=== PATIENT | female | born 1950 ===

== ENCOUNTER → 2017-07-01 | Emergency (ER) | payer OTHER ==
[~2017-07-01] VITALS: Ht 152.4 cm; Wt 64.9 kg
[~2017-07-01] MED LIST: COZAAR50 MG PO; HYDRODIURIL12.5 MG PO
== END | disposition home or self-care (01) ==
LOC: ER 08:43
DX: R42 Dizziness and giddiness (principal)

== ENCOUNTER 2019-12-05 08:06 | Outpatient (CLI) | payer OTHER | END 2019-12-05 08:10 | disposition home or self-care (01) | LOC: TOM 08:06 | PROVIDERS: ATTEND Internal Medicine | DX: R19.8 Other specified symptoms and signs involving the digestive system and abdomen (principal) ==

== ENCOUNTER 2021-09-02 12:06 | Outpatient (CLI) | payer OTHER | END 2021-09-02 12:13 | disposition home or self-care (01) | LOC: RAD 12:06 | PROVIDERS: ATTEND Physical Medicine & Rehabilitation | DX: M17.0 Bilateral primary osteoarthritis of knee (principal) ==

== ENCOUNTER 2021-09-05 07:49 | Outpatient (CLI) | payer OTHER | END 2021-09-05 08:03 | disposition home or self-care (01) | LOC: TOM 07:49 | PROVIDERS: ATTEND Internal Medicine | DX: K57.30 Diverticulosis of large intestine without perforation or abscess without bleeding (principal) ==

== ENCOUNTER 2022-11-17 07:25 | Emergency (ER) | payer OTHER ==
[~2022-11-17] VITALS: Ht 152.4 cm; Wt 69.4 kg
[2022-11-17] MEDS ORDERED: METFORMIN HCL500 M2 PO (07:38)
== END 2022-11-17 15:06 | disposition home or self-care (01) ==
LOC: ER 07:25
DX: R10.31 Right lower quadrant pain (principal); K57.30 Diverticulosis of large intestine without perforation or abscess without bleeding; Z88.6 Allergy status to analgesic agent; Z88.8 Allergy status to other drugs, medicaments and biological substances